=== PATIENT | female | born 1980 | race American Indian/Alaskan Native ===

== ENCOUNTER 2022-04-15 12:49 | Emergency (ER) | payer SELFPAY ==
[2022-04-15 13:01] VITALS: BP 114/82
[2022-04-15] MEDS ORDERED: ASPIRIN 325 MG TAB PO ONE (13:02)
[2022-04-15 14:07] LABS: Basophils # (Auto) 0.1 K/mm3 (0.0-0.1); Basophils % (Auto) 1.1 % (0.0-1.8); Eosinophils # (Auto) 0.1 K/mm3 (0.0-0.4); Eosinophils % (Auto) 1.6 % (0.0-4.3); Hematocrit 37.5 % (30.3-42.9); Hemoglobin 12.2 gm/dl (10.1-14.3); Lymphocytes # (Auto) 2.5 K/mm3 (1.2-5.4); Lymphocytes % (Auto) 44.5 % (13.4-35.0); Mean Corpuscular HGB Conc 32 % (30-34); Mean Corpuscular Volume 71 fl (79-97); Monocytes # (Auto) 0.4 K/mm3 (0.0-0.8); Monocytes % (Auto) 7.8 % (0.0-7.3); Platelet Count 256 K/mm3 (140-440); Red Blood Count 5.26 M/mm3 (3.65-5.03); Red Cell Distribution Width 16.4 % (13.2-15.2)
[2022-04-15 14:34] LABS: Alanine Aminotransferase 15 units/L (7-56); Albumin 4.4 g/dL (3.9-5); Blood Urea Nitrogen 20 mg/dL (7-17); Calcium 9.4 mg/dL (8.4-10.2); Hemolysis Index 0
[2022-04-15 14:42] LABS: BUN/Creatinine Ratio 40
--- NOTE | 2022-04-15 15:03 | XRay Report ---
CHEST 2 VIEWS INDICATION / CLINICAL INFORMATION: CHEST PAIN/SOB. COMPARISON: None available. FINDINGS: SUPPORT DEVICES: None. HEART / MEDIASTINUM: No significant abnormality. LUNGS / PLEURA: No significant pulmonary abnormality. No significant pleural effusion. No pneumothora x. ADDITIONAL FINDINGS: No significant additional findings. IMPRESSION: 1. No acute abnormality of the chest. Signer Name: Km Barajas MD Signed: 04/15/2022 2:59 PM Workstation Name: [id number]
--- NOTE | 2022-04-15 20:01 | Electrocardiograph Report ---
[facility] Test Date: 2022-04-15 Test Time: 13:17:56 Pat Name: SHELLEY OLIVAREZ Department: Room: Gender: F [employer]: CATE : 1980 Requested By: ED DOC Order Number: [id number] Reading MD: Barney Lobato Measurements Intervals [place] Rate: 91 P: 21 KS: 154 QRS: 40 QRSD: 71 T: 44 QT: 369 QTc: 454 Interpretive Statements Sinus rhythm No previous ECG available for comparison Electronically Signed On 04-15-2022 20:00:55 EDT by Barney Lobato
== END 2022-04-15 14:00 | disposition left against medical advice (07) ==
LOC: ED 12:49
DX: R07.9 Chest pain, unspecified (principal); Z53.21 Procedure and treatment not carried out due to patient leaving prior to being seen by health care provider
CPT/HCPCS: 36415; 71046; 80053; 84484; 85025; 93005